=== PATIENT | male | born 1965 | race Caucasian/White ===

== ENCOUNTER → 2020-03-28 10:52 | Outpatient (CLI) | payer BC, SELFPAY ==
--- NOTE | ~2020-03-28 | XR_ITS ---
EXAMINATION: XR lumbar spine 2-3V EXAM DATE: 03/28/2020 11:20 INDICATION: Left L3-4-5 Radiculopathy, Low back pain, lt leg numbness. TECHNIQUE: Lumber spine frontal, lateral, lateral L5-S1 projections for interpretation. There is no prior study for comparison. FINDINGS: Mild lumbar dextroscoliosis. Moderate disc disease at all lumbar levels. Small endplate os teophytes. The vertebral bodies are aligned in the AP dimension. There is moderate diffuse lumbar fac et arthropathy. No spondylolysis. Sacrum, sacroiliac joints, sacral arcuate lines are intact. Abdomin al wall mesh anchors. IMPRESSION: 1. Moderate lumbar spondylosis. 2. Mild dextroscoliosis. Reviewed, dictated and finalized at location A. TIC PRESS OPERATOR
== END ==
PROVIDERS: PCP Family Medicine; Visit Provider Chiropractor
DX: M47.816 Spondylosis without myelopathy or radiculopathy, lumbar region (principal); M41.9 Scoliosis, unspecified
CPT/HCPCS: 72100

== ENCOUNTER 2020-04-18 10:36 | Outpatient (CLI) | payer BC, SELFPAY ==
--- NOTE | ~2020-04-18 | MR_ITS ---
EXAMINATION: MR lumbar spine wo con DATE: 04/18/2020 11:26 INDICATION: Other spondylosis with radiculopathy, lumbar region. TECHNIQUE: Magnetic resonance imaging (MRI) of the lumbar spine was performed without intravenous con trast. Sequences included sagittal T2-weighted FSE, sagittal T2-weighted FS FSE, sagittal T1-weighted FSE, and axial T2-weighted FSE. COMPARISON: Lumbar spine radiographs 03/28/2020 FINDINGS: There is 4 degrees dextroscoliosis of lumbar spine. Vertebral body heights are normal. Ther e is moderately decreased disc height at L1-L2 and L2-L3 and severely decreased disc height at L3-L4, L4-L5, and L5-S1 with endplate remodeling. The distal spinal cord signal intensity is normal. The co nus medullaris is at L1. The following disc levels are specifically discussed: L1-L2: The disc is bulging and has an annular fissure. There is mild bilateral facet joint osteoarthr itis. There is mild right neural foraminal stenosis. There is mild central canal stenosis. L2-L3: The disc is bulging and has an annular fissure. There is moderate bilateral facet joint osteoa rthritis. There is mild bilateral neural foraminal stenosis. There is mild central canal stenosis. L3-L4: The disc is bulging and has an annular fissure. There is moderate bilateral facet joint osteoa rthritis. There is mild right and moderate left neural foraminal stenosis. There is mild central satish l stenosis. L4-L5: The disc is bulging and has an annular fissure. There is severe bilateral facet joint osteoart hritis. There is moderate bilateral neural foraminal stenosis. There is mild central canal stenosis. L5-S1: The disc is bulging and has an annular fissure. There is mild bilateral facet joint osteoarthr itis. There is moderate bilateral neural foraminal stenosis. There is mild central canal stenosis. IMPRESSION: 1. Severe lumbar spondylosis. Reviewed, dictated and finalized at location B. DATA PLATFORM ARCHITECT
== END 2020-04-18 10:37 | disposition home or self-care (01) ==
PROVIDERS: PCP Family Medicine; Visit Provider Physician Assistant Medical
DX: M47.26 Other spondylosis with radiculopathy, lumbar region (principal)
CPT/HCPCS: 72148